=== PATIENT | female | born 1960 | race Caucasian/White ===

== ENCOUNTER 2017-10-12 22:59 | Emergency (ER) | payer MEDICAID ==
[2017-10-13] MEDS: DIPHTH/TET/ACEL PERTUSS (ADULT) 0.5 ML VIAL IM* (00:39)
[2017-10-13] MEDS: ACETAMINOPHEN 325 MG TAB PO (00:49)
[2017-10-13] MEDS ORDERED: LIDOCAINE 1% (MDV) 20 ML INJ SC (01:00)
[2017-10-13] MEDS: LIDOCAINE 1% (MDV) 10 ML INJ INJ (01:06)
== END 2017-10-13 01:44 | disposition home or self-care (01) ==
LOC: FTE 22:59
DX: S01.01XA Laceration without foreign body of scalp, initial encounter (principal); W22.8XXA Striking against or struck by other objects, initial encounter; Y92.000 Kitchen of unspecified non-institutional (private) residence as the place of occurrence of the external cause; Z23 Encounter for immunization
CPT/HCPCS: 12002; 90471; 90715; 99283-25

== ENCOUNTER 2017-10-20 12:51 | Emergency (ER) | payer MEDICAID | END 2017-10-20 17:49 | disposition home or self-care (01) | LOC: E/R 17:49 | DX: Z48.02 Encounter for removal of sutures (principal) | CPT/HCPCS: 99281; Z7502 ==

== ENCOUNTER 2018-05-23 09:23 | Day surgery (SDC) | payer OTHER, MEDICAID ==
[2018-05-23] MEDS ORDERED: FENTAnyl 50 MCG/ML VIAL (11:42)
[2018-05-23] MEDS ORDERED: MIDAZOLAM 1 MG/ML 2 ML INJ ×2 (11:42)
== END 2018-05-23 15:47 | disposition home or self-care (01) ==
LOC: GIL 09:23
DX: Z12.11 Encounter for screening for malignant neoplasm of colon (principal); K64.8 Other hemorrhoids; K57.30 Diverticulosis of large intestine without perforation or abscess without bleeding
CPT/HCPCS: 45378